=== PATIENT | female | born 1950 | race Caucasian/White ===

== ENCOUNTER 2018-12-05 17:51 | Emergency (ER) | payer OTHER ==
[~2018-12-05] VITALS: Ht 165.1 cm; Wt 62.1 kg
[2018-12-05 18:05] VITALS: BP 159/95; Ht 165.1 cm; Wt 62.1 kg
== END 2018-12-05 19:01 | disposition home or self-care (01) ==
LOC: ED 17:51
DX: S63.92XA Sprain of unspecified part of left wrist and hand, initial encounter (principal); Y04.8XXA Assault by other bodily force, initial encounter; Y93.89 Activity, other specified; Y92.89 Other specified places as the place of occurrence of the external cause; Y99.8 Other external cause status